=== PATIENT | female | born 1965 | race Caucasian/White ===

== ENCOUNTER 2018-12-25 14:48 | Emergency (ER) | payer OTHER ==
[~2018-12-25] VITALS: Ht 154.9 cm; Wt 67.0 kg
[2018-12-25 14:54] VITALS: BP 143/64
--- NOTE | 2018-12-25 15:08 | NUR ---
cyracom translation used for triage
[2018-12-25] MEDS ORDERED: PROPARACAINE OPHTH 0.5%, 15ML EACHEYE STA (15:53)
[2018-12-25] MEDS ORDERED: FLUORESCEIN OPHTHALMIC 1 MG STRIP ONE (16:10)
[2018-12-25] MEDS ORDERED: PROPARACAINE OPHTH 0.5%, 15ML ONE (16:10)
--- NOTE | 2018-12-25 16:12 | NUR ---
Pt to 20 from lobby. Delay due to room being unavailable & requiring terminal clean.
--- NOTE | 2018-12-25 16:14 | NUR ---
Pt to room, with family members who are translating for pt as she is A[place]i speaking only. Pt c/o right eye itchiness, redness, and feeling hot x 7-8 days with no relief from ABX drops prescribed by PCP.
--- NOTE | 2018-12-25 16:20 | NUR ---
Karen SAHU, at bedside to evaluate pt.
[2018-12-25] MEDS ORDERED: CEFDINIR 300 MG CAPSULE ONE (17:22)
[2018-12-25] MEDS ORDERED: CEFDINIR 300 MG CAPSULE PO ONE (17:30)
== END 2018-12-25 17:54 | disposition home or self-care (01) ==
LOC: ED 17:30
DX: H01.002 Unspecified blepharitis right lower eyelid (principal)
CPT/HCPCS: 99283